=== PATIENT | male | born 1970 | race Caucasian/White ===

== ENCOUNTER 2022-12-17 08:08 | Outpatient (CLI) | payer BC, SELFPAY | END 2022-12-17 08:09 | disposition home or self-care (01) | LOC: NFLDREF 12-20 19:10 | PROVIDERS: PCP Internal Medicine; Visit Provider Internal Medicine | DX: Z00.00 Encounter for general adult medical examination without abnormal findings (principal); Z13.6 Encounter for screening for cardiovascular disorders; Z12.5 Encounter for screening for malignant neoplasm of prostate | CPT/HCPCS: 80053; 80061; 84153 ==

== ENCOUNTER 2023-05-22 14:52 | Outpatient (CLI) | payer BC, SELFPAY ==
--- NOTE | 2023-05-22 15:00 | CRLHL7_ITS ---
For Patients: As a result of the Century Cures Act, medical imaging exams and procedure reports are released immediately into your electronic medical record. You may view this report before your referring provider. If you have questions, please contact your health care provider. Indication: mass at base of head/neck posterior Technique: Grayscale and color Doppler ultrasound of the soft tissues performed in the area of concern within the posterior neck. IMPRESSION: There is a circumscribed macro lobular heterogeneously hypoechoic soft tissue mass within the subcutaneous tissues of the posterior head/neck. This mass measures 4.7 x 2.5 x 3.7 cm. No internal vascularity. This mass is indeterminate and consider cross-sectional imaging for further evaluation. Dictated by Kee Valdes MD @ 05/22/2023 3:52:06 PM (Electronically Signed)
== END 2023-05-22 14:53 | disposition home or self-care (01) ==
LOC: US 14:53
PROVIDERS: PCP Internal Medicine; Visit Provider Surgery
DX: R22.1 Localized swelling, mass and lump, neck (principal)
CPT/HCPCS: 76536

== ENCOUNTER 2023-05-28 10:50 | Outpatient (CLI) | payer BC, SELFPAY ==
--- NOTE | 2023-05-28 11:00 | CRLHL7_ITS ---
For Patients: As a result of the Century Cures Act, medical imaging exams and procedure reports are released immediately into your electronic medical record. You may view this report before your referring provider. If you have questions, please contact your health care provider. INDICATION: Surgical planning, suspected lipoma. TECHNIQUE: CT of the neck from the skull base to the thoracic inlet following administration of 131 cc iodinated intravenous contrast. COMPARISON: Ultrasound dated 05/22/2023. FINDINGS: A 3.1 x 4.8 x 3.9 cm minimally enhancing soft tissue density mass is noted within the subcutaneous tissues underlying the occiput (series 3, image 27 and series 5, image 59). No suspicious mucosal-based mass or enhancement. No pathologically enlarged cervical lymph nodes. Borderline prominent bilateral level IIa nodes retain a normal reniform morphology. Normal parotid and submandibular glands. Unremarkable thyroid. The lung apices are clear. The major vascular structures are normal in appearance. No suspicious osseous lesion is identified. A left maxillary mucous retention cyst is incidentally noted. IMPRESSION: 4.8 cm minimally enhancing soft tissue density mass within the midline subcutaneous tissues underlying the occiput, nonspecific with primary diagnostic consideration of epidural/sebaceous cyst. Please note that all CT scans at this facility use dose modulation, iterative reconstruction, and/or weight-based dosing when appropriate to reduce radiation dose to as low as reasonably achievable. Dictated by Raúl Gastelum MD @ 05/28/2023 1:42:21 PM (Electronically Signed)
== END 2023-05-28 10:51 | disposition home or self-care (01) ==
PROVIDERS: PCP Internal Medicine; Visit Provider Surgery
DX: R22.1 Localized swelling, mass and lump, neck (principal)
CPT/HCPCS: 70491; Q9967

== ENCOUNTER 2023-06-03 06:14 | Day surgery (SDC) | payer BC, SELFPAY ==
[2023-06-03] VITALS (12 sets, daily range): BP systolic 125–152; BP diastolic 85–102; PULSE 75–97; RESP 13–18; TEMP 36.3–36.7; O2SAT 94–98; BMI 40.8
[2023-06-03] MEDS: LACTATED RINGERS 1000 ML 1,000 ML 100 ML IV (06:20)
[2023-06-03] MEDS: SODIUM CHLORIDE 0.9 % (FLUSH) 10 ML SYRINGE IVF (06:33)
--- NOTE | 2023-06-03 07:30 | W.PM.H&PU ---
History & Physical Update History & Physical Update H&P Reviewed and patient assessed: No changes noted
--- NOTE | 2023-06-03 07:33 | P.GSOP_ITS ---
Operative Note Date of procedure: 06/03/23 Pre-op diagnosis: 1. Enlarging posterior scalp mass. Post-op diagnosis: 1. Enlarging posterior scalp cyst. Type of Procedure: 1. Excision of posterior scalp cyst 8 x 5 cm. Indications: 53-year-old male was seen in clinic for evaluation of an enlarging posterior scalp mass. Patient initially noticed a small lump years ago. With time the lump has been increasing in size. He denied drainage or pain at the lump but was worried because of the enlarging size. On clinical exam in the posterior ba mark scalp there was a horizontally oriented soft tissue mass measuring approximately 7 x 4 cm. This seemed to be mobile. An ultrasound was obtained that showed the mass was superficial located in the soft tissues. Given the enlarging nature of the mass and the size of the mass, excision in the operating room was recommended. The procedure was discussed in detail. The risks associated procedure including infection, bleeding, and mass recurrence were all discussed with the patient, and he agreed to proceed. Procedure Description: After discussing the risks and benefits of the procedure, the patient signed informed consent.? The operative site was marked and the patient was brought to the operating room. Patient was intubated by Anesthesia, and then placed prone on the operating table with all pressure points padded. The operative site was then prepped and draped in the usual sterile fashion.? A time-out was then performed. Local anesthetic was injected at the surgical site. A horizontal elliptical skin incision was made with a scalpel. Subcutaneous fat and dermis was divided with cautery. The mass was circumferentially mobilized off subcutaneous tissue with cautery. The mass had white appearance of the wall consistent with a cyst. This is what is excised with cautery. The cyst was measuring 8 x 5 cm. Hemostasis achieved with cautery. Additional local anesthetic was injected at the surgical site. The incision was then closed in layers with interrupted 2-0 in 3-0 Vicryl sutures. The skin was closed with a running 4-0 Monocryl stitch. Surgical glue was placed over the incision. The incision was 10.5 cm. The patient was then woken and transported to the recovery area in stable condition. ? The patient tolerated the procedure well. Findings: Posterior scalp cyst. Anesthesia: GETA Surgeon: Kirk Cannon MD Estimated blood loss (mL): 5 Additional Specimen Information: 1. Posterior scalp cyst. Condition: stable Disposition: PACU
[2023-06-03] MEDS: CEFAZOLIN 2 GM INJ IVP (07:48)
--- NOTE | 2023-06-03 08:04 | W.ANESCHARGE ---
Anesthesia Charges Start Date/Time Anesthesia Start Date: 06/03/23 Anesthesia Start Time: 07:29 Stop Date/Time Anesthesia Stop Date: 06/03/23 Anesthesia Stop Time: 08:36
[2023-06-03] MEDS: BUPIVACAINE 0.25% 30 ML INJECTION (08:15)
== END 2023-06-03 09:52 | disposition home or self-care (01) ==
PROVIDERS: PCP Internal Medicine; Visit Provider Surgery
PROC: (CPT 11426; principal; 2023-06-03 07:30)
DX: L72.0 Epidermal cyst (principal)
CPT/HCPCS: 11426; 12034; 00300; 88304; J0330; J0665; J0690; J1100; J1170; J2250; J2405; J2704; J3010; J7120

== ENCOUNTER 2024-01-31 20:44 | Emergency (ER) | payer BC, SELFPAY ==
--- NOTE | 2024-01-31 21:01 | ED_ITS ---
HPI - Wound/Laceration General Time Seen by Provider: 21:02 Date Seen: 01/31/24 Chief Complaint: Laceration/Wound Stated Complaint: cut on L hand Time Seen by Provider: 01/31/24 20:49 Source: patient, RN notes reviewed and old records reviewed Mode of arrival: ambulatory Limitations: no limitations History of Present Illness HPI narrative: This 53-year-old male is coming to the ER with a laceration sustained to his left index finger while cutting squash, happened about 1 hour prior to arrival. Patient is unsure of his last tetanus but does do his primary care here. Denies any numbness or tingling. The wound has been bleeding quite a bit. His chart shows he had a Tdap 09/07/2020 which would make him up-to-date. He does not use any blood thinners. Related Data Home Medications ?Medication ?Instructions ?Recorded ?Confirmed No Known Home Medications 06/19/23 06/19/23 Allergies Allergy/AdvReac Type Severity Reaction Status Date / Time amoxicillin Allergy Mild Rash Verified 06/19/23 09:06 Chlorahexadine Allergy Intermediate rash Uncoded 06/19/23 09:06 Review of Systems Narrative: As per HPI. PFSH PFSH Medical History Morbid obesity ?E66.01 - Morbid (severe) obesity due to excess calories (ICD-10) Lump in neck ?R22.1 - Localized swelling, mass and lump, neck (ICD-10) Surgical History History of removal of cyst ?Z98.890 - Other specified postprocedural states (ICD-10) History of ankle surgery ?Z98.890 - Other specified postprocedural states (ICD-10) Social History What is your current living situation?: I presently have a place to live Problems where you live: no known problems In the past 12 months, utilities in danger of being shut off: no In past 12 months, lack of transportation kept you from medical appts, meetings, work, or getting things needed for daily living: no In the past 12 mos, have been you worried that your food would run out before you had money to buy more?: never true In the past 12 mos, the food you bought just didn't last and you didn't have money to buy more?: never true Smoking Status: Never smoker How often do you have a drink containing alcohol: monthly or less How many standard drinks containing alcohol do you have on a typical day: 3 or 4 How often do you have six or more drinks on one occasion: Never AUDIT-C Alcohol total score: 2 Non-prescribed substance use: denies use Caffeine: Yes How often does anyone, including family, friends and others, physically hurt you : never How often does anyone, including family, friends and others, insult or talk down to you: never How often does anyone, including family, friends and others, threaten you with harm: never How often does anyone, including family, friends and others, scream or curse at you: sometimes Little interest or pleasure in doing things: not at all Feeling down, depressed, or hopeless: not at all Exam Const: Vital Signs, click to edit/add: Vital Signs - 24 hr 01/31/24 21:03 Temperature 97.9 F Pulse Rate [Pulse Oximeter] 76 Respiratory Rate 16 Blood Pressure [Ri ght Upper Arm] 152/106 H Pulse Oximetry 95 Oxygen Delivery Me thod Room Air 53-year-old male is alert, interactive, no apparent distress. He has bloody bandages and is holding his left index finger. Bandages are removed, he has a flap laceration on the dorsal surface of the proximal phalanx of the left index finger. Distal RIBBON INKER is intact, he has normal light touch sensation. He demon strates full range of motion in no loss of motor throughout the finger. When I am testing his motor with resisted flexion, the wound does open up and spurt some blood. Otherwise it is just moderately oozing dark blood. With my fingers as a make shift tourniquet, am able to lift this flap type laceration up, it is into the subcutaneous tissue and is deep into the subcutaneous tissue but does not extend into any deeper structures. Documenting provider has reviewed patient's vital signs: yes Course Course ED Course: Patient understands that I am recommending sutures for closure and hemostasis of this wound. I do not feel that other modalities of closure are going to be sufficient. He agrees to closure with sutures. Vital Signs Vital signs: Initial Vital Signs Temperature 97.9 F 01/31/24 21:03 Temperature Source Temporal Artery Scan 01/31/24 21:03 Pulse Rate 76 01/31/24 21:03 Respiratory Rate 16 01/31/24 21:03 Blood Pressure 152/106 H 01/31/24 21:03 Blood Pressure Mean 121 H 01/31/24 21:03 Blood Pressure Position Sitting 01/31/24 21:03 Pulse Oximetry 95 01/31/24 21:03 Oxygen Delivery Method Room Air 01/31/24 21:03 Vital Signs Temperature 97.9 F 01/31/24 21:03 Pulse Rate 76 01/31/24 21:03 Respiratory Rate 16 01/31/24 21:03 Blood Pressure 152/106 H 01/31/24 21:03 Pulse Oximetry 95 01/31/24 21:03 Oxygen Delivery Method Room Air 01/31/24 21:03 Temperature 97.9 F 01/31/24 21:03 Pulse Rate 76 01/31/24 21:03 Respiratory Rate 16 01/31/24 21:03 Blood Pressure 152/106 H 01/31/24 21:03 Pulse Oximetry 95 01/31/24 21:03 Oxygen Delivery Method Room Air 01/31/24 21:03 Discharge Plan Discharge Clinical Impression: Laceration of left index finger Qualifiers: Encounter type: initial encounter Damage to nail status: without damage Foreign body presence: without foreign body Qualified Code(s): S61.211A - Laceration without foreign body of left index finger without damage to nail, initial encounter Patient Disposition: Home, Self-Care Condition: Stable Instructions: Care For Your Stitches (ED), Finger Laceration (ED) Additional Instructions: May shower and wash hands but should otherwise keep this wound clean and dry until healed. Use bacitracin and bandages to keep covered and clean while out in public or up during the day. If there is concern for infection, please seek re-evaluation. Need to schedule a clinic appointment to have this wound assessed for potential suture removal in 7-10 days. Activity Level: Activity as Tolerated Prescriptions: No Action No Known Home Medications Follow Up/Referrals: Michel Mcadams MD [Primary Care Provider] - Stand Alone Forms: [facility] Info Instructions Procedures Laceration Laceration 1: Pre procedure diagnosis: Left index finger laceration Post procedure diagnosis: Same Site marking: not applicable Verification/time out: correct patient, correct site and correct procedure Name of person performing procedure: Mariah Rivera Site: hand Side (If applicable): left Size (cm): 1.25 Description: flap Depth: simple, single layer Local Anesthetic: bupivacaine 0.25% (5 mL drawn up, 3 mL used locally to achieve anesthesia.) Amount of anesthesia used (mL): 5 Pre-repair: wound explored and irrigated extensively (With sterile saline) Skin layer closed with: other (Ethilon) Size (cm): 4-0 Number of sutures: 6 Technique: simple, interrupted Estimated blood loss (if any): less than 5mls Conclusion: patient tolerated procedure
[2024-01-31 21:03] VITALS: BP 152/106; PULSE 76; RESP 16; TEMP 36.6; O2SAT 95
== END 2024-01-31 21:53 | disposition home or self-care (01) ==
PROVIDERS: Emergency Provider Family Medicine; PCP Internal Medicine
DX: S61.211A Laceration without foreign body of left index finger without damage to nail, initial encounter (principal); W26.0XXA Contact with knife, initial encounter
CPT/HCPCS: 12001; 99283

== ENCOUNTER 2024-06-08 08:23 | Outpatient (CLI) | payer BC, SELFPAY | END 2024-06-08 08:24 | disposition home or self-care (01) | LOC: NFLDREF 06-12 03:18 | PROVIDERS: PCP Internal Medicine; Referring Provider Internal Medicine; Visit Provider Internal Medicine | DX: Z13.228 Encounter for screening for other metabolic disorders (principal); Z13.220 Encounter for screening for lipoid disorders; Z12.5 Encounter for screening for malignant neoplasm of prostate | CPT/HCPCS: 80053; 80061; G0103 ==